=== PATIENT | female | born 1940 | race Caucasian/White ===

== ENCOUNTER 2020-05-17 11:27 | Day surgery (SDC) | payer MEDICARE ==
[~2020-05-17] VITALS: Ht 149.9 cm; Wt 82.0 kg
[2020-05-17] MEDS ORDERED: FURO40TA6 PO (12:16)
[2020-05-17] MEDS ORDERED: IBAN150T15 PO (12:16)
[2020-05-17] MEDS ORDERED: LEVO137T2 PO (12:16)
[2020-05-17] MEDS ORDERED: POTA20PA31 PO (12:16)
[2020-05-17] MEDS ORDERED: SODIUM CHLORIDE 0.9% 1,000 ML IV SCH ×2 (12:30→15:30)
[2020-05-17] MEDS ORDERED: DIPHENHYDRAMINE 50 MG/ML, 1ML IVPush ONE (12:30)
[2020-05-17] MEDS ORDERED: MIDAZOLAM 1 MG/ML, 2ML ONE (13:20)
[2020-05-17] MEDS ORDERED: VERAPAMIL 2.5 MG/ML, 2ML ONE (13:20)
[2020-05-17] MEDS ORDERED: LIDOCAINE 2%, 20ML ONE (13:20)
[2020-05-17] MEDS ORDERED: HEPARIN 1,000 UNITS/ML, 10ML ONE (13:20)
[2020-05-17] MEDS ORDERED: FENTANYL PF 100 MCG/2ML ONE (13:20)
[2020-05-17] MEDS ORDERED: DIPHENHYDRAMINE 50 MG/ML, 1ML ONE (13:57)
== END 2020-05-17 17:30 | disposition home or self-care (01) ==
LOC: CACL 11:27
PROVIDERS: ATTEND Internal Medicine Cardiovascular Disease
DX: I25.10 Atherosclerotic heart disease of native coronary artery without angina pectoris (principal); I34.2 Nonrheumatic mitral (valve) stenosis; I27.9 Pulmonary heart disease, unspecified; Z79.899 Other long term (current) drug therapy; G47.30 Sleep apnea, unspecified; Z90.710 Acquired absence of both cervix and uterus; Z96.653 Presence of artificial knee joint, bilateral; Z98.890 Other specified postprocedural states
CPT/HCPCS: 36415; 82330; 82803; 82947; 83880; 84132; 84295; 85014; 93460; 99156; 99157; C1769; C1894; J1200; J1644; J2250; J3010; Q9967